=== PATIENT | male | born 1955 | race Two or more races ===

== ENCOUNTER 2017-04-20 12:09 | Day surgery (SDC) | payer OTHER ==
[2017-04-20 12:44] VITALS: BMI 25.7
[2017-04-20 12:51] LABS: PH,URINE 5.5 (4.5-8); URINE APPEARANCE Clear; URINE BILIRUBIN Negative (NEGATIVE); URINE BLOOD Trace-intact (NEGATIVE); URINE COLOR AMBER; URINE GLUCOSE (UA) Negative (NEGATIVE); URINE KETONE Negative (NEGATIVE); URINE LEUK ESTERASE 1+ (NEGATIVE); URINE NITRITE Negative (NEGATIVE); URINE PROTEIN Negative (NEGATIVE); URINE UROBILINOGEN 0.2 (0.2-1.0)
[2017-04-20] MEDS ORDERED: ACETAMINOPHEN 325 MG TABLET (FP) PO ONE (13:13)
[2017-04-20] MEDS ORDERED: SODIUM CHLORIDE 1,000 ML IV SCH ×2 (13:15→16:45)
[2017-04-20 13:27] LABS: WHITE BLOOD COUNT 5.4 K/mm3 (4.0-10.8)
[2017-04-20] MEDS ORDERED: ACETAMINOPHEN 325 MG TABLET (FP) ONE (13:27)
[2017-04-20 13:32] LABS: MCH 30.7 pg (25.7-33.7); MCHC 34.3 g/dl (32.0-35.9); MEAN CELL VOLUME 89.5 fl (80-96); MEAN PLT VOLUME 9.8 fl (7.5-11.1); PLATELET COUNT 196 K/MM3 (134-434); RDW 12.8 % (11.9-15.9)
[2017-04-20 13:42] LABS: ALBUMIN 4.2 g/dl (3.5-5.0); ALK PHOS 81 U/L (32-92); ANION GAP 3 (8-16); BILIRUBIN,TOTAL 0.9 mg/dl (0.2-1.0); CALCIUM 9.2 mg/dl (8.4-10.2); CO2 27 mmol/L (22-28); CREATININE 0.9 mg/dl (0.6-1.3); GLUCOSE,RANDOM 95 mg/dl (74-106); SGOT/AST 23 U/L (10-42); SGPT/ALT 24 U/L (10-40); TOT PROT 6.9 g/dl (6.4-8.3)
[2017-04-20 13:49] LABS: PLATELET ESTIMATE NORMAL (NORMAL)
--- NOTE | 2017-04-20 15:11 | PDOC ---
History of Present Illness - General Chief Complaint: Pain Stated Complaint: RIGHT ABDOMINAL PAIN X 3 DAYS Time Seen by Provider: 04/20/17 12:20 History Source: Patient, Family, Spouse Exam Limitations: No Limitations - History of Present Illness Initial Comments: 04/20/17 15:07 CHIEF COMPLAINT: Abdominal pain in the right lower abdomen HISTORY OF PRESENT ILLNESS: Patient is a 61-year-old man with a history of hypertension and smoking who presents complaining of right lower abdominal pain for 3 days. The pain has been steady. It does not radiate. There is no nausea or vomiting. He feels some mild constipation but has been having a bowel movement every 1-2 days which is his usual. There is no dysuria or frequency. 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 There is no change with movement. REVIEW OF SYSTEMS: GENERAL/CONSTITUTIONAL: No fever or chills. No weakness. No weight change. HEAD, EYES, EARS, NOSE AND THROAT: No change in vision. No ear pain or discharge. No sore throat. CARDIOVASCULAR: No chest pain or shortness of breath. RESPIRATORY: No cough, wheezing, or hemoptysis. GASTROINTESTINAL: No nausea, vomiting, diarrhea or constipation. No rectal bleeding. Positive abdominal pain. GENITOURINARY: No dysuria, frequency, or change in urination. MUSCULOSKELETAL: No joint or muscle swelling or pain. No neck or back pain. SKIN AND BREASTS: No rash or easy bruising. NEUROLOGIC: No headache, vertigo, loss of consciousness, or loss of sensation. PSYCHIATRIC: No depression or anxiety. ENDOCRINE: No increased thirst. No abnormal weight change. HEMATOLOGIC/LYMPHATIC: No anemia, easy bleeding, or history of blood clots. ALLERGIC/IMMUNOLOGIC: No hives or skin allergy. No latex allergy. Past History - Past Medical History Allergies/Adverse Reactions: Allergies Allergy/AdvReac Type Severity Reaction Status Date / Time No Known Allergies Allergy Verified 04/20/17 12:30 Home Medications: Ambulatory Orders Cholecalciferol (Vitamin D3) [Vitamin D3] 5,000 unit PO DAILY 04/20/17 Cyanocobalamin (Vitamin B-12) [B-12] 500 mcg PO DAILY 04/20/17 Gabapentin [Neurontin] 600 mg PO BID 04/20/17 Hydrochlorothiazide 25 mg PO DAILY 04/20/17 Naproxen [Naprosyn -] 500 mg PO BID PRN 04/20/17 Turmeric/Turmeric Ext/Pepr Ext [Turmeric Complex 500 mg Cap] 1 each PO DAILY HTN: Yes Hypercholesterolemia: Yes Other medical history: SPINAL STENOSIS WITH HERNIATED DISC - Psycho/Social/Smoking Cessation Hx Anxiety: No Suicidal Ideation: No Smoking History: Current every day smoker Number of Cigarettes Smoked Daily: 7 Information on smoking cessation initiated: Yes 'Breaking Loose' booklet given: 04/20/17 Hx Alcohol Use: Yes (1-2 BEER PER MONTH) Drug/Substance Use Hx: No Substance Use Type: None *Physical Exam - Vital Signs Last Vital Signs Temp Pulse Resp BP Pulse Ox 98.2 F 85 15 138/84 96 04/20/17 12:10 04/20/17 12:10 04/20/17 12:10 04/20/17 12:10 04/20/17 12:10 - Physical Exam Comments: 04/20/17 15:10 GENERAL: The patient is awake, alert, and fully oriented, in no acute distress. HEAD: Normal with no signs of trauma. EYES: Pupils equal, round and reactive to light, extraocular movements intact, sclera anicteric, conjunctiva clear. ENT: Ears normal, nares patent, oropharynx clear without exudates. Moist mucous membranes. NECK: Normal range of motion, supple without lymphadenopathy, JVD, or masses. LUNGS: Breath sounds equal, clear to auscultation bilaterally. No wheezes, and no crackles. HEART: Regular rate and rhythm, normal S1 and S2 without murmur, rub or gallop. ABDOMEN: Soft, normoactive bowel sounds. Positive focal tenderness in the right lower quadrant. No guarding, no rebound. No masses. EXTREMITIES: Normal range of motion, no edema. No clubbing or cyanosis. No cords, erythema, or tenderness. NEUROLOGICAL: Cranial nerves II through XII grossly intact. Normal speech, normal gait. PSYCH: Normal mood, normal affect. SKIN: Warm, Dry, normal turgor, no rashes or lesions noted. ED Treatment Course - LABORATORY CBC & Chemistry Diagram: 04/20/17 13:20 04/20/17 13:20 - ADDITIONAL ORDERS Additional order review: Laboratory Results 04/20/17 04/20/17 13:20 12:44 Sodium 137 Potassium 3.8 Chloride 107 Carbon Dioxide 27 Anion Gap 3 L BUN 10 Creatinine 0.9 Creat Clearance w eGFR > 60 Random Glucose 95 Calcium 9.2 Total Bilirubin 0.9 AST 23 ALT 24 Alkaline Phosphatase 81 Total Protein 6.9 Albumin 4.2 Lipase 39 Urine Color Angie Urine Appearance Clear Urine pH 5.5 Ur Specific [place] 1.010 Urine Protein Negative Urine Glucose (UA) Negative Urine Ketones Negative Urine Blood Trace-intact Urine Nitrite Negative Urine Bilirubin Negative Urine Urobilinogen 0.2 Ur Leukocyte Esterase 1+ H Urine WBC 5-10 Ur Epithelial Cells Rare 04/20/17 13:20 RBC 5.38 MCV 89.5 MCHC 34.3 RDW 12.8 MPV 9.8 Neutrophils % 66.0 Lymphocytes % 29.0 Monocytes % 3.0 L Eosinophils % 2.0 - RADIOLOGY Radiology Studies Ordered: Category Date Time Status ABDOMEN & PELVIS CT WITH CONTR [CT] Stat CT Scan 04/20/17 13:13 Taken - Medications Given in the ED: ED Medications Discontinued Medications Generic Name Dose Route Start Last Admin Trade Name Freq PRN Reason Stop Dose Admin Acetaminophen 650 mg 04/20/17 13:13 04/20/17 13:29 Tylenol - PO 04/20/17 13:14 650 mg ONCE ONE Administration Medical Decision Making - Medical Decision Making 04/20/17 16:37 White blood cell count is unimpressive. Patient with persistent focal right lower quadrant pain and persistent focal tenderness at McBurney's point on serial examinations. CT scan of the abdomen and pelvis shows an inflamed appendix with periappendiceal stranding. Case discussed with the surgeon Dr. Lyons, she will come to the hospital to perform an appendectomy. Patient received Zosyn 4.5 g IV. He received 1 L of fluid and is currently on his second liter at 125 mL per hour. *DC/Admit/Observation/Transfer Diagnosis at time of Disposition: Acute appendicitis Qualifiers: Acute appendicitis type: with localized peritonitis Qualified Code(s): K35.3 - Acute appendicitis with localized peritonitis - Discharge Dispostion Condition at time of disposition: Good Admit: Yes Decision to Admit order Date/Time: 04/20/17 16:[address] Lyons, spoke to her now
[2017-04-20] MEDS ORDERED: PIPERACILLIN/TAZOB 4.5 GM 4.5 GM in DEXTROSE 5%-WATER 100 ML IVPB ONE (15:47)
[2017-04-20] MEDS ORDERED: PIPERACILLIN/TAZOBACTAM 4.5 GM VIAL IVPB ONE (16:23)
--- NOTE | 2017-04-20 17:58 | HP ---
Admitting History and Physical - Primary Care Physician PCP: Carolyn Duval - Admission Chief Complaint: RLQ pain History of Present Illness: 61yo M with HTN, HLD, lumbar stenosis/disc disease, smoker, presents with 3 days of RLQ pain not associated with F/C, N/V, D/C, anorexia. It started few hours after lifting heavy paint can, but persisted, so son advised him to come to ER today. Last BM yesterday, normal for him. Last po 10am this morning, bread. In ER, wbc 5, CT shows dilated appendix with inflammatory changes consistent with appendicitis. ER started fluids and antibiotics and called surgery. He currently states no pain without palpation. History Source: Patient Limitations to Obtaining History: Language Barrier (acoustics teacher by phone #[phone] used for H&P and surgical consent) - Past Medical History Cardiovascular: Yes: HTN, Hyperlipdemia (meds were stopped) Musculoskeletal: Yes: Chronic low back pain - Smoking History Smoking history: Current every day smoker Have you smoked in the past 12 months: Yes Aproximately how many cigarettes per day: 7 (for ~50 years) - Alcohol/Substance Use Hx Alcohol Use: Yes (1-2 BEER PER MONTH) History of Substance Use: reports: None - Social History Usual Living Arrangement: Yes: With Spouse Home Medications - Allergies Allergies/Adverse Reactions: Allergies Allergy/AdvReac Type Severity Reaction Status Date / Time No Known Allergies Allergy Verified 04/20/17 12:30 - Home Medications Home Medications: Ambulatory Orders Cholecalciferol (Vitamin D3) [Vitamin D3] 5,000 unit PO DAILY 04/20/17 Cyanocobalamin (Vitamin B-12) [B-12] 500 mcg PO DAILY 04/20/17 Gabapentin [Neurontin] 600 mg PO BID 04/20/17 Hydrochlorothiazide 25 mg PO DAILY 04/20/17 Naproxen [Naprosyn -] 500 mg PO BID PRN 04/20/17 Turmeric/Turmeric Ext/Pepr Ext [Turmeric Complex 500 mg Cap] 1 each PO DAILY Family Disease History - Family Disease History Family Disease History: Heart Disease: Brother Review of Systems - Review of Systems Constitutional: denies: Chills, Fever Eyes: denies: Blurred Vision, Double Vision HENT: denies: Difficult Swallowing, Nasal Congestion, Throat Pain Neck: denies: Swollen Glands, Tenderness Cardiovascular: denies: Chest Pain, Palpitations Respiratory: denies: Cough, SOB Gastrointestinal: reports: Abdominal Pain (with hpi). denies: Constipation, Diarrhea, Nausea, Vomiting Genitourinary: denies: Burning, Dysuria Musculoskeletal: reports: Back Pain. denies: Joint Pain Integumentary: denies: Change in Color, Rash Neurological: denies: Dizziness, Headache Endocrine: denies: Unexplained Weight Gain, Unexplained Weight Loss Physical Examination Vital Signs: Vital Signs Temperature 98.2 F 04/20/17 12:10 Pulse Rate 85 04/20/17 12:10 Respiratory Rate 15 04/20/17 12:10 Blood Pressure 138/84 04/20/17 12:10 O2 Sat by Pulse Oximetry (%) 96 04/20/17 12:10 Constitutional: Yes: Well Nourished, No Distress, Calm Eyes: Yes: Conjunctiva Clear, EOM Intact HENT: Yes: Atraumatic, Normocephalic Cardiovascular: Yes: Regular Rate and Rhythm. No: Murmur Respiratory: Yes: Regular, CTA Bilaterally Gastrointestinal: Yes: Normal Bowel Sounds, Soft, Tenderness (RLQ focal at McBurney's without rebound or guarding). No: Distention ...Rectal Exam: Yes: Deferred Renal/: No: CVA Tenderness - Left, CVA Tenderness - Right Musculoskeletal: No: Joint Swelling, Muscle Weakness Extremities: No: Cool, Cyanosis Edema: No Peripheral Pulses WNL: Yes Integumentary: No: Jaundice, Rash Neurological: Yes: Alert, Oriented Psychiatric: Yes: Alert, Oriented Labs: CBC, BMP 04/20/17 13:20 04/20/17 13:20 CMP Sodium 137 mmol/L (136-145) 04/20/17 13:20 Potassium 3.8 mmol/L (3.5-5.1) 04/20/17 13:20 Chloride 107 mmol/L (98-107) 04/20/17 13:20 Carbon Dioxide 27 mmol/L (22-28) 04/20/17 13:20 Anion Gap 3 (8-16) L 04/20/17 13:20 BUN 10 mg/dl (7-18) 04/20/17 13:20 Creatinine 0.9 mg/dl (0.6-1.3) 04/20/17 13:20 Creat Clearance w eGFR > 60 (>60) 04/20/17 13:20 Random Glucose 95 mg/dl (74-106) 04/20/17 13:20 Calcium 9.2 mg/dl (8.4-10.2) 04/20/17 13:20 Total Bilirubin 0.9 mg/dl (0.2-1.0) 04/20/17 13:20 AST 23 U/L (10-42) 04/20/17 13:20 ALT 24 U/L (10-40) 04/20/17 13:20 Alkaline Phosphatase 81 U/L (32-92) 04/20/17 13:20 Total Protein 6.9 g/dl (6.4-8.3) 04/20/17 13:20 Albumin 4.2 g/dl (3.5-5.0) 04/20/17 13:20 Lipase 39 U/L (22-51) 04/20/17 13:20 Imaging - Results Cat Scan: Report Reviewed (acute appendicitis, incidental 1.1cm left adrenal nodule), Image Reviewed Problem List - Problems (1) Acute appendicitis Assessment/Plan: NPO/IVF Zosyn given in ER Discussed with patient R/B/A of laparoscopic possible open appendectomy including but not limited to bleeding, infection, injury to bladder/intestines/ nearby structures, intestinal leak, intraabdominal abscess, need for further procedures. Patient is agreeable to operation and signed informed consent. Will take to OR for same and anticipate 23H/OBS bed afterward with resumption of PO Pain meds prn DVT prophylaxis - early ambulation, SCDs Likely d/c home tomorrow when ambulating, voiding, tolerating po and pain controlled on oral meds Code(s): K35.80 - UNSPECIFIED ACUTE APPENDICITIS Qualifiers: Acute appendicitis type: other Qualified Code(s): K35.89 - Other acute appendicitis (2) HTN (hypertension) Assessment/Plan: hold HCTZ for 24H Code(s): I10 - ESSENTIAL (PRIMARY) HYPERTENSION Qualifiers: Hypertension type: essential hypertension Qualified Code(s): I10 - Essential (primary) hypertension (3) Spinal stenosis of lumbar region Code(s): M48.06 - SPINAL STENOSIS, LUMBAR REGION (4) Tobacco smoker, less than 10 cigarettes per day Code(s): F17.210 - NICOTINE DEPENDENCE, CIGARETTES, UNCOMPLICATED
[2017-04-20] MEDS ORDERED: PROPOFOL 20 ML ONE (18:13)
[2017-04-20] MEDS ORDERED: MIDAZOLAM HCL 2 MG/2 ML SINGLE DOSE VIAL ONE (18:13)
[2017-04-20] MEDS ORDERED: ROCURONIUM BROMIDE 50 MG/5 ML VIAL ONE (18:16)
[2017-04-20] MEDS ORDERED: SUCCINYLCHOLINE CHLORIDE 200 MG/10 ML VIAL ONE (18:18)
[2017-04-20] MEDS ORDERED: PROMETHAZINE HCL 25 MG/1 ML VIAL IVPUSH PRN (18:25)
[2017-04-20] MEDS ORDERED: ONDANSETRON 4 MG/2 ML VIAL IVPUSH PRN (18:25)
--- NOTE | 2017-04-20 18:26 | PDOC ---
*Physical Exam - Vital Signs Last Vital Signs Temp Pulse Resp BP Pulse Ox 98.2 F 85 15 138/84 96 04/20/17 12:10 04/20/17 12:10 04/20/17 12:10 04/20/17 12:10 04/20/17 12:10 ED Treatment Course - LABORATORY CBC & Chemistry Diagram: 04/20/17 13:20 04/20/17 13:20 - ADDITIONAL ORDERS Additional order review: Laboratory Results 04/20/17 04/20/17 13:20 12:44 Sodium 137 Potassium 3.8 Chloride 107 Carbon Dioxide 27 Anion Gap 3 L BUN 10 Creatinine 0.9 Creat Clearance w eGFR > 60 Random Glucose 95 Calcium 9.2 Total Bilirubin 0.9 AST 23 ALT 24 Alkaline Phosphatase 81 Total Protein 6.9 Albumin 4.2 Lipase 39 Urine Color Angie Urine Appearance Clear Urine pH 5.5 Ur Specific [place] 1.010 Urine Protein Negative Urine Glucose (UA) Negative Urine Ketones Negative Urine Blood Trace-intact Urine Nitrite Negative Urine Bilirubin Negative Urine Urobilinogen 0.2 Ur Leukocyte Esterase 1+ H Urine WBC 5-10 Ur Epithelial Cells Rare 04/20/17 13:20 RBC 5.38 MCV 89.5 MCHC 34.3 RDW 12.8 MPV 9.8 Neutrophils % 66.0 Lymphocytes % 29.0 Monocytes % 3.0 L Eosinophils % 2.0 - RADIOLOGY Radiology Studies Ordered: Category Date Time Status ABDOMEN & PELVIS CT WITH CONTR [CT] Stat CT Scan 04/20/17 13:13 Completed - Medications Given in the ED: ED Medications Discontinued Medications Generic Name Dose Route Start Last Admin Trade Name Freq PRN Reason Stop Dose Admin Acetaminophen 650 mg 04/20/17 13:13 04/20/17 13:29 Tylenol - PO 04/20/17 13:14 650 mg ONCE ONE Administration Piperacillin Sod/Tazobactam 100 mls @ 200 mls/hr 04/20/17 15:47 04/20/17 16:47 Sod 4.5 gm/ Dextrose IVPB 04/20/17 16:16 200 mls/hr ONCE ONE Administration Medical Decision Making - Medical Decision Making 04/20/17 18:25 Twelve-lead EKG shows normal sinus rhythm at a rate of 63 bpm. The axis is normal. The intervals are normal. There is no acute ST elevation or depression. Impression: Normal 12-lead EKG. The surgeon is here at the bedside evaluating the patient. He is pending OR transfer. *DC/Admit/Observation/Transfer Diagnosis at time of Disposition: Acute appendicitis Qualifiers: Acute appendicitis type: other Qualified Code(s): K35.89 - Other acute appendicitis - Discharge Dispostion Condition at time of disposition: Good Decision to Admit order Date/Time: Decision to Admit Order Category Date Time Status Decision to Admit to Hospital Routine Admission 04/20/17 16:39 Active - Referrals Referrals: Kit Rahman MD [Primary Care Provider] - - Patient Instructions - Post Discharge Activity
[2017-04-20] MEDS ORDERED: LACTATED RINGERS SOLUTION 1,000 ML IV SCH (18:30)
[2017-04-20] MEDS ORDERED: NEOSTIGMINE METHYLSULFATE 0.5 MG/ML - 10 ML MDV ONE (19:52)
[2017-04-20] MEDS ORDERED: LIDOCAINE HCL 1%, 10 MG/ML (20ML VIAL) INF ONE (19:58)
[2017-04-20] MEDS ORDERED: BUPIVACAINE HCL/PF 0.5% (5MG/ML) 10 ML VIAL IJ ONE (20:00)
[2017-04-20] MEDS ORDERED: ACETAMINOPHEN 325 MG TABLET (FP) PO PRN (20:26)
[2017-04-20] MEDS ORDERED: morphine CARPU-JECT 2 MG/1 ML DISP.SYRIN IVPUSH PRN (20:26)
[2017-04-20] MEDS ORDERED: IBUPROFEN 800 MG/8 ML IJ IVPB ONE (20:35)
--- NOTE | 2017-04-20 20:47 | OP ---
Operative Note - Note: Operative Date: 04/20/17 Pre-Operative Diagnosis: acute appendicitis Operation: laparoscopic appendectomy Findings: enlarged inflamed appendix, normal base Post-Operative Diagnosis: Same as Pre-op Surgeon: Abiel Licona Anesthesiologist/MONITOR CAR OPERATOR: Donnie Mathews Anesthesia: General, Local (10ml 1% lidocaine + 0.5% marcaine) Specimens Removed: appendix to pathology Estimated Blood Loss (mls): 5 Drains & Tubes with Location: Khanna removed at end of case Drains, Volume Out (mls): 250 (UOP) Fluid Volume Replaced (mls): 900 (crystalloid) Operative Report Dictated: Yes
[2017-04-20] MEDS: GABAPENTIN 300 MG CAPSULE (FP) PO SCH (22:22)
[2017-04-21] MEDS ORDERED: PIPERACILLIN/TAZOB 4.5 GM 100 ML IVPB ONE (02:00)
[2017-04-21] MEDS ORDERED: NAPROXEN 500 MG TABLET (FP) PO SCH (07:00)
[2017-04-21] MEDS: GABAPENTIN 300 MG CAPSULE (FP) PO SCH (09:26)
[2017-04-21 14:21] VITALS: BP 131/57; PULSE 84; TEMP 98.4
--- NOTE | 2017-04-21 16:06 | DS ---
Physical Examination Vital Signs: Vital Signs Temperature 98.4 F 04/21/17 14:20 Pulse Rate 84 04/21/17 14:20 Respiratory Rate 18 04/21/17 14:20 Blood Pressure 131/57 04/21/17 14:20 O2 Sat by Pulse Oximetry (%) 96 04/21/17 14:20 Findings/Remarks: Pt seen and examined in room, sitting up and lying down. Tolerating diet, feeling well. Pain minimal, has not needed pain meds since am. Voided, ambulated. Constitutional: Yes: Well Nourished, No Distress, Calm Cardiovascular: Yes: Regular Rate and Rhythm. No: Murmur Respiratory: Yes: Regular, CTA Bilaterally Gastrointestinal: Yes: Normal Bowel Sounds, Soft, Distention (mild), Tenderness (mild at RLQ and umbilical incision) Wound/Incision: Yes: Steri Strips (bloodstained at umbilicus but dry), Dressing Dry and Intact (LLQ and suprapubic sites ok, small pink spot at inferior of lower port dressing, dried), Dressing Removed (at umbilicus and changed for clean gauze and tegaderm), Other (umbilical site dressing saturated with serosang from last night - dressing changed, steri's intact) Neurological: Yes: Alert, Oriented Labs: CBC, BMP no new Discharge Summary Reason For Visit: acute appendicitis Current Active Problems Acute appendicitis (Acute) HTN (hypertension) (Acute) Spinal stenosis of lumbar region (Acute) Tobacco smoker, less than 10 cigarettes per day (Acute) Procedures: Principal: laparoscopic appendectomy Hospital Course: 61yoM with 3 days of RLQ pain and no significant associated symptoms was found in ER to have acute appendicitis by CT. He was taken for uneventful laparoscopic appendectomy. Postop course has been unremarkable. He has ambulated , voided, tolerated diet, and has minimal pain controlled with oral meds. He is discharged home with lifting restrictions to follow up with me in 2 weeks. He is also advised to see his PMD soon. Condition: Good - Instructions Diet, Activity, Other Instructions: You CANNOT sit in water meaning : NO POOL OR HOT TUB. This will be UNTIL your incisions are COMPLETELY healed. NO working out or going to the gym for 1 month. Postoperative instructions: You had a laparoscopic appendectomy on 04/20/[address] Abiel Licona of [facility]. Resume your usual activities gradually, but no heavy exertion or lifting more than 10-15 pounds for 1 month. Remove dressings tomorrow evening or Saturday morning; sticky tapes underneath will fall off by themselves. You may shower daily starting then, just pat the incision areas dry. Eat lightly at first, but advance to your usual diet as tolerated. For pain, use Tylenol (acetaminophen) or ibuprofen every 6 hours as needed. Do not take more than 3000mg of acetaminophen in a day. Take medications as prescribed or indicated on the labeling. Call Dr. Licona's office later in the week at [phone] for your postop appointment (Saturday ~2 weeks after surgery). Call Dr. Licona if you have: - increasing pain not responsive to pain medication - fever of 101F or higher - vomiting - unusual or increasing bleeding or drainage from wounds - increasing redness or swelling at wound sites - inability to urinate Referrals: Abiel Licona MD [Staff Physician] - 2 Weeks (Call the office and make a appointment to see Dr. Licona in 2 weeks. ) Kit Rahman MD [Primary Care Provider] - Disposition: HOME - Home Medications Comprehensive Discharge Medication List: Ambulatory Orders Cholecalciferol (Vitamin D3) [Vitamin D3] 5,000 unit PO DAILY 04/20/17 Cyanocobalamin (Vitamin B-12) [B-12] 500 mcg PO DAILY 04/20/17 Gabapentin [Neurontin] 600 mg PO BID 04/20/17 Hydrochlorothiazide 25 mg PO DAILY 04/20/17 Naproxen [Naprosyn -] 500 mg PO BID PRN 04/20/17 Turmeric/Turmeric Ext/Pepr Ext [Turmeric Complex 500 mg Cap] 1 each PO DAILY
--- NOTE | 2017-04-23 09:27 | OP ---
DATE OF OPERATION: 04/20/2017 PREOPERATIVE DIAGNOSIS: Acute appendicitis. POSTOPERATIVE DIAGNOSIS: Acute appendicitis. PROCEDURE PERFORMED: Laparoscopic appendectomy. SURGEON: Abiel Licona MD ANESTHESIA: General endotracheal and local 10 mL of 1% lidocaine plus 0.5% Marcaine. ESTIMATED BLOOD LOSS: 5 mL FLUIDS: 900 mL of crystalloid. URINE OUTPUT: 250 mL (Khanna removed at end of case). SPECIMEN: Appendix to Pathology. FINDINGS: An enlarged, inflamed appendix with a normal base. DISPOSITION: Stable and extubated to PACU. INDICATIONS FOR PROCEDURE: The patient is a 61-year-old [place] male with hypertension, hyperlipidemia, lumbar spinal stenosis, who is a light smoker, presented to the ER with 3 days of right lower quadrant pain, not associated with fever or chills, nausea, vomiting, anorexia, diarrhea, or constipation. In the emergency room, his white count was only 5, but a CT scan did show a dilated appendix with inflammatory changes consistent with appendicitis. The ER started fluids and antibiotics, and Surgery was called. Risks, benefits, and alternatives of laparoscopic, possible open appendectomy were discussed with the patient via director television by phone, including, but not limited to, bleeding, infection, injury to bladder, intestines or nearby structures, intestinal leakage, or abdominal abscess or need for further procedures. The patient agrees to operation, and informed consent for laparoscopic, possible open appendectomy was signed. He is now brought to the operating room for the same. OPERATIVE TECHNIQUE: The patient is brought to the operating room and laid supine on the operating table. Sequential compression devices are applied to bilateral lower extremities, and antibiotics had just recently finished in the emergency room. He was given Zosyn just prior to being transferred to the operating room; so, no additional antibiotics were given. After induction and intubation by Anesthesia , a Khanna catheter was placed into the bladder, which was removed at the end of the case. His abdomen was clipped of hair, prepped with ChloraPrep, and draped in sterile fashion. A small infraumbilical midline incision was made with a scalpel and carried into subcutaneous tissues with electrocautery until the abdominal wall fascia was identified, scored, and elevated with Dora clamps. The peritoneal cavity was entered bluntly with the tip of a clamp and then a fingertip to ensure entry and no underlying adhesions. A stay stitch of 0 Vicryl was then placed in figure-of-8 fashion in the fascia for later closure, and the 12-mm Sapna port was introduced directly into the abdominal cavity. The abdomen was insufflated with carbon dioxide. The patient was placed in Trendelenburg position, and the 5-mm laparoscope inserted to inspect the abdominal cavity. The tip of the appendix was visible in the right lower quadrant and noted to be inflamed and enlarged with injected vessels. Two additional 5-mm ports were then placed in the left lower quadrant and suprapubic areas under direct vision. The patient was turned with the right side upward, and the camera was moved to the left lower quadrant port. Two graspers were introduced through the subxiphoid and umbilical port sites and used to gently manipulate the small bowel medially. The appendix was grasped with a grasper, and a few small adhesions to the adjacent fat, veil of Treves and the sidewall were gently and bluntly . The edge of the cecum itself was noted to be somewhat mushroomed over the base of the appendix, but the appendix was gently grasped and withdrawn until a normal base was visible where it joined the cecum, just a little bit under the edge of the veil of Treves. A window was created with a [place] dissector just at the base of the appendix, through which an Endo NADJA stapler was then introduced with a purple load and used to transect the base of the appendix just where it joined the cecum. There was no bleeding from the staple line, and the appendix was re- grasped and elevated. A brower load of the Endo NADJA stapler 60 in length was introduced, and a vascular load used to transect the mesoappendix completely. There was no bleeding noted from the staple line. There was a small bit of blood clot noted from some of the adhesions that had been bluntly , and this was irrigated and suctioned clear of fluid in the right lower quadrant. There was no additional bleeding noted. The appendix was placed in an Endo Catch bag through the umbilical port site and left for retrieval at the end of the case. The pelvis was also inspected and noted not to have any significant fluid accumulation. Once the operative field was again inspected and noted to be hemostatic, the patient was placed back in neutral position, and the small bowel and omentum drawn back down toward the right lower quadrant to cover the operative area. The two 5-mm ports were removed under direct vision. The Sapna trocar and the appendix and the bag were also removed out of the umbilical port site and the abdomen exsufflated of carbon dioxide. The stay stitch at the umbilical site was tied to close the fascia there. Hemostasis was achieved in the port sites with electrocautery where needed. Local anesthetic was injected into each of the 3 port sites, and the skin was closed with 4-0 Vicryl subcuticular sutures including a running at the umbilical location. Mastisol and Steri-Strips were applied to the incisions which were then covered with gauze and Tegaderm. The Khanna catheter was removed from the patient's bladder at the end of the case. Counts were correct at the end of the case. Patient was then awakened and extubated by Anesthesia, was moved back to a stretcher, and taken to recovery in stable condition, having tolerated the procedure well. Myra [id number] MTDD
--- NOTE | 2017-04-24 10:32 | PATH ---
Surgical Pathology Report Patient Name: PRERNA ARIZMENDI [facility]. Rec. #: [id number] /Age/Gender: 1955 (Age: 61) / M Account: [id number] [facility] Taken: 04/20/2017 Received: 04/20/2017 Reported: 04/24/2017 Physicians: Abiel Licona M.D. Specimen(s) Received APPENDIX Clinical History Right lower quadrant pain x3 days, appendicitis Final Diagnosis APPENDIX, APPENDECTOMY: ACUTE APPENDICITIS. FIBROUS OBLITERATION OF LUMEN. Electronically Signed Angie Goel M.D. Gross Description Received in formalin, labeled "appendix," is a 7.5 cm. in length vermiform appendix with a stapled margin of resection and moderate attached fat. The serosa is brower-pink and smooth. Sectioning reveals a pinpoint lumen. The wall of the appendix averages 0.3 cm. in thickness. Bicycle Mechanic sections are submitted in one cassette. 04/22/2017 [facility]04/22/2017
== END 2017-04-21 16:38 | disposition home or self-care (01) ==
LOC: FER 12:09 → FM/S 19:02 → FER 21:15 → FASUSAT 21:15 → FM/S 21:15 → FASU 21:15 → UNDOADMOB 21:16 → FM/S 21:16 → FASUSAT 04-21 10:07 → FASU 04-21 16:38
PROVIDERS: ATTEND Surgery
PROC: 0DTJ4ZZ Resection of Appendix, Percutaneous Endoscopic Approach (ICD-10-PCS; principal; 2017-04-20 18:36)
DX: K35.80 Unspecified acute appendicitis (principal); I10 Essential (primary) hypertension; E78.5 Hyperlipidemia, unspecified; F17.210 Nicotine dependence, cigarettes, uncomplicated; M48.06 Spinal stenosis, lumbar region
CPT/HCPCS: 36415; 74177-TC; 80053; 81003; 81015; 83690; 85025; 88304-TC; 94760; 99283-25

== ENCOUNTER 2018-10-21 17:06 | Emergency (ER) | payer OTHER ==
[2018-10-21 17:23] VITALS: BP 147/89; PULSE 86; TEMP 98; BMI 22.1
--- NOTE | 2018-10-21 18:13 | PDOC ---
History of Present Illness - History of Present Illness Initial Comments: 10/21/18 18:14 63yo cape verdean speaking M ([employer] # [id number]) hx HTN, HL, chronic low back pain, appendectomy presents to the ED with 4 weeks of R groin pain. He relates the pain to walking into a table 4 weeks ago. Pain is sharp, non radiating and intermittent. At times, he feels a "bubble" in his groin. He states the bubble comes out with coughing and walking. Has been taking tylenol with good relief of symptoms. Pt presents to the ED today as he has been unable to make an appointment with his primary doctor. Pain has actually improved over the last week. Last BM today was normal. Denies any current pain. Denies recent fevers, chills, N/V, urinary sxs, CP, SOB, focal weakness/numbness. REports pain is 3/10 when the bubble is out. Pt is an active smoker. <Eugene Chambers - Last Filed: 10/21/18 18:54> <Patti Reed I - Last Filed: 10/21/18 21:20> - General Chief Complaint: Pain Stated Complaint: RIGHT GROIN PAIN Time Seen by Provider: 10/21/18 17:10 Past History - Past Medical History COPD: No HTN: Yes Hypercholesterolemia: Yes Other medical history: BACK PROBLEMS - Surgical History Appendectomy: Yes - Suicide/Smoking/Psychosocial Hx Smoking History: Never smoked Have you smoked in the past 12 months: Yes Number of Cigarettes Smoked Daily: 7 Information on smoking cessation initiated: No 'Breaking Loose' booklet given: 04/20/17 Hx Alcohol Use: No Drug/Substance Use Hx: No Substance Use Type: None <Eugene Chambers - Last Filed: 10/21/18 18:54> <Patti Reed I - Last Filed: 10/21/18 21:20> - Past Medical History Allergies/Adverse Reactions: Allergies Allergy/AdvReac Type Severity Reaction Status Date / Time No Known Allergies Allergy Verified 10/21/18 17:10 Home Medications: Ambulatory Orders Cyanocobalamin (Vitamin B-12) [B-12] 2,500 mcg PO DAILY 04/20/17 Hydrochlorothiazide 25 mg PO DAILY 04/20/17 Turmeric/Turmeric Ext/Pepr Ext [Turmeric Complex 500 mg Cap] 1 each PO DAILY Acetaminophen [Tylenol -] 1,000 mg PO PRN 10/21/18 Atorvastatin Ca [Lipitor] 20 mg PO HS 10/21/18 Gabapentin 800 mg PO BID 10/21/18 Review of Systems - Review of Systems Comments:: 10/21/18 18:16 GENERAL/CONSTITUTIONAL: No fever or chills. No weakness. HEAD, EYES, EARS, NOSE AND THROAT: No change in vision. No ear pain or discharge. No sore throat. GASTROINTESTINAL: No nausea, vomiting, diarrhea or constipation. GENITOURINARY: +R groin pain. No dysuria, frequency, or change in urination. CARDIOVASCULAR: No chest pain or shortness of breath. RESPIRATORY: No cough, wheezing, or hemoptysis. MUSCULOSKELETAL: No joint or muscle swelling or pain. No neck or back pain. SKIN: No rash NEUROLOGIC: No headache, vertigo, loss of consciousness, or change in strength/ sensation. ENDOCRINE: No increased thirst. No abnormal weight change. HEMATOLOGIC/LYMPHATIC: No anemia, easy bleeding, or history of blood clots. ALLERGIC/IMMUNOLOGIC: No hives or skin allergy. <Nassef,Yomna - Last Filed: 10/21/18 18:54> *Physical Exam - Vital Signs Last Vital Signs Temp Pulse Resp BP Pulse Ox 98 F 86 16 147/89 97 10/21/18 17:10 10/21/18 17:10 10/21/18 17:10 10/21/18 17:10 10/21/18 17:10 - Physical Exam Comments: 10/21/18 19:03 GENERAL: Awake, alert, and fully oriented, in no acute distress. Well appearing. EYES: PERRLA, EOMI, sclera anicteric, conjunctiva clear ENT: Nares patent, oropharynx clear without exudates. Moist mucosa NECK: Normal ROM, supple, no lymphadenopathy, JVD, or masses LUNGS: Breath sounds equal, clear to auscultation bilaterally. No wheezes, and no crackles HEART: Regular rate and rhythm, normal S1 and S2, no murmurs, rubs or gallops ABDOMEN: Soft, nontender, normoactive bowel sounds. No guarding, no rebound. No masses. No CVAT. :+mild R groin ttp right over inguinal canal, no large defects noted. No herniated bowel. When bearing down or coughing, no extrusion of bowel into defect. genitalia/scrotum wnl, no ttp or masses. EXTREMITIES: Normal range of motion, no edema. No cords, erythema, or tenderness. WWP. NEUROLOGICAL: Normal speech, cranial nerves intact, equal strength and sensation b/l SKIN: Warm, Dry, normal turgor, no rashes or lesions noted. <Eugene Chambers - Last Filed: 10/21/18 18:54> - Vital Signs Last Vital Signs Temp Pulse Resp BP Pulse Ox 98 F 86 16 147/89 97 10/21/18 17:10 10/21/18 17:10 10/21/18 17:10 10/21/18 17:10 10/21/18 17:10 <Patti Reed I - Last Filed: 10/21/18 21:20> Moderate Sedation - Procedure Monitoring Vital Signs: Procedure Monitoring Vital Signs Temperature 98 F 10/21/18 17:10 Pulse Rate 86 10/21/18 17:10 Respiratory Rate 16 10/21/18 17:10 Blood Pressure 147/89 10/21/18 17:10 O2 Sat by Pulse Oximetry (%) 97 10/21/18 17:10 <Eugene Chambers - Last Filed: 10/21/18 18:54> - Procedure Monitoring Vital Signs: Procedure Monitoring Vital Signs Temperature 98 F 10/21/18 17:10 Pulse Rate 86 10/21/18 17:10 Respiratory Rate 16 10/21/18 17:10 Blood Pressure 147/89 10/21/18 17:10 O2 Sat by Pulse Oximetry (%) 97 10/21/18 17:10 <Patti Reed I - Last Filed: 10/21/18 21:20> ED Treatment Course - LABORATORY CBC & Chemistry Diagram: 10/21/18 19:15 10/21/18 19:15 - ADDITIONAL ORDERS Additional order review: Laboratory Results 10/21/18 10/21/18 19:15 19:15 Sodium 135 L Potassium 4.1 Chloride 99 Carbon Dioxide 30 H Anion Gap 6 L BUN 16 Creatinine 0.9 Creat Clearance w eGFR > 60 Random Glucose 101 Calcium 9.3 Total Bilirubin 0.3 AST 25 ALT 21 Alkaline Phosphatase 103 H Total Protein 7.0 Albumin 4.0 Urine Color Yellow Urine Appearance Clear Urine pH 7.0 D Ur Specific [place] 1.015 Urine Protein Negative Urine Glucose (UA) Negative Urine Ketones Negative Urine Blood Negative Urine Nitrite Negative Urine Bilirubin Negative Urine Urobilinogen 1.0 Ur Leukocyte Esterase Negative 10/21/18 19:15 RBC 5.22 MCV 91.6 MCHC 32.5 RDW 12.8 MPV 9.6 Neutrophils % 64.1 Lymphocytes % 22.3 D Monocytes % 10.4 H D Eosinophils % 1.6 Basophils % 1.6 <Patti Reed I - Last Filed: 10/21/18 21:20> Medical Decision Making - Medical Decision Making 10/21/18 19:06 63yo M hx appy, HTN, HL presents to the ED with intermittent R groin pain, worse with activity and coughing consistent with a inguinal hernia. Exam wnl, no ttp, no incarcerated or strangulated hernia. Pt with no pain at this time and no masses on exam and thus will hold off on emergent imaging. Plan for labs , UA, reassess. Case signed out to overnight attending for further mgmt/dispo. <Eugene Chambers - Last Filed: 10/21/18 18:54> *DC/Admit/Observation/Transfer - Discharge Dispostion Decision to Admit order: No - Attestations Physician Attestion: 10/21/18 19:08 I, Dr. Eugene Chambers MD, attest that this document has been prepared under my direction and personally reviewed by me in its entirety. I further attest, that it accurately reflects all work, treatment, procedures and medical decision -making performed by me. <Eugene Chambers - Last Filed: 10/21/18 18:54> <Patti Reed I - Last Filed: 10/21/18 21:20> Diagnosis at time of Disposition: Groin pain Qualifiers: Laterality: unspecified laterality Qualified Code(s): R10.30 - Lower abdominal pain, unspecified - Discharge Dispostion Disposition: HOME Condition at time of disposition: Stable - Referrals Referrals: Carolyn Duval MD [Primary Care Provider] - - Patient Instructions Additional Instructions: Tylenol or motrin as needed for pain. Call your surgeon in the morning and make an appointment to follow up about your pain. Return to the emergency department immediately with ANY new, persistent or worsening symptoms. Continue any medications as previously prescribed by your physician. You should follow up with your primary doctor as soon as possible regarding today's emergency department visit. . Please make sure your doctor reviews the results of your emergency evaluation. Thank you for coming to the Emergency Department today for your care. It was a pleasure to see you today. Please note that your evaluation is INCOMPLETE until you follow-up with your doctor. Tylenol o motrin segn sea necesario para el dolor. Llame a blankenship cirujano por la maana y leana marium juan jose para darle seguimiento a blankenship dolor. Regrese al departamento de emergencias inmediatamente con CUALQUIER sntoma nuevo, persistente o que empeore. Contine con cualquier medicamento segn lo prescrito previamente por blankenship mdico. Debe hacer un seguimiento con blankenship mdico de cabecera lo antes posible con respecto a la visita al departamento de emergencias de robert. . Asegrese de que blankenship mdico revise los resultados de blankenship evaluacin de emergencia. Gina por venir robert al Departamento de Emergencias por blankenship atencin. Fue un placer formerly [facility], later [facility]. Tenga en cuenta que blankenship evaluacin es INCOMPLETA hasta que leana un seguimiento con blankenship mdico. - Post Discharge Activity
[2018-10-21 19:19] LABS: URINE APPEARANCE Clear; URINE BILIRUBIN Negative (NEGATIVE); URINE COLOR Yellow; URINE GLUCOSE (UA) Negative (NEGATIVE); URINE KETONE Negative (NEGATIVE); URINE LEUK ESTERASE Negative (NEGATIVE); URINE NITRITE Negative (NEGATIVE); URINE PROTEIN Negative (NEGATIVE)
[2018-10-21 19:27] LABS: BASO % 1.6 % (0-2.0); EOS % 1.6 % (0-4.5); HEMATOCRIT 47.8 % (35.4-49); HEMOGLOBIN 15.6 GM/dl (11.7-16.9); LYMPH % 22.3 % (8-40); MCH 29.8 pg (25.7-33.7); MCHC 32.5 g/dl (32.0-35.9); MEAN CELL VOLUME 91.6 fl (80-96); MEAN PLT VOLUME 9.6 fl (7.5-11.1); MONO % 10.4 % (3.8-10.2); NEUT % 64.1 % (42.8-82.8); PLATELET COUNT 300 K/MM3 (134-434); RBC 5.22 M/mm3 (4.00-5.60); RDW 12.8 % (11.9-15.9); WHITE BLOOD COUNT 7.4 K/mm3 (4.0-10.8)
[2018-10-21 19:35] LABS: ALK PHOS 103 U/L (32-92); ANION GAP 6 MMOL/L (8-16); BILIRUBIN,TOTAL 0.3 mg/dl (0.2-1.0); BLOOD UREA NITROGEN 16 mg/dl (7-18); CALCIUM 9.3 mg/dl (8.4-10.2); CHLORIDE 99 mmol/L (98-107); CO2 30 mmol/L (22-28); CREATININE 0.9 mg/dl (0.6-1.3); GLUCOSE,RANDOM 101 mg/dl (74-106); POTASSIUM 4.1 mmol/L (3.5-5.1); SGOT/AST 25 U/L (10-42); SGPT/ALT 21 U/L (10-40); SODIUM 135 mmol/L (136-145)
--- NOTE | 2018-10-21 19:53 | PDOC ---
*Physical Exam - Vital Signs Last Vital Signs Temp Pulse Resp BP Pulse Ox 98 F 86 16 147/89 97 10/21/18 17:10 10/21/18 17:10 10/21/18 17:10 10/21/18 17:10 10/21/18 17:10 ED Treatment Course - LABORATORY CBC & Chemistry Diagram: 10/21/18 19:15 10/21/18 19:15 - ADDITIONAL ORDERS Additional order review: Laboratory Results 10/21/18 10/21/18 19:15 19:15 Sodium 135 L Potassium 4.1 Chloride 99 Carbon Dioxide 30 H Anion Gap 6 L BUN 16 Creatinine 0.9 Creat Clearance w eGFR > 60 Random Glucose 101 Calcium 9.3 Total Bilirubin 0.3 AST 25 ALT 21 Alkaline Phosphatase 103 H Total Protein 7.0 Albumin 4.0 Urine Color Yellow Urine Appearance Clear Urine pH 7.0 D Ur Specific [place] 1.015 Urine Protein Negative Urine Glucose (UA) Negative Urine Ketones Negative Urine Blood Negative Urine Nitrite Negative Urine Bilirubin Negative Urine Urobilinogen 1.0 Ur Leukocyte Esterase Negative 10/21/18 19:15 RBC 5.22 MCV 91.6 MCHC 32.5 RDW 12.8 MPV 9.6 Neutrophils % 64.1 Lymphocytes % 22.3 D Monocytes % 10.4 H D Eosinophils % 1.6 Basophils % 1.6 Progress Note - Progress Note Progress Note: care of this patient was Transferred to mo from Dr. Medina at 1900 hrs. Patient is a 63-year-old male who comes in complaining of groin pain. There is a small defect in the inguinal area however no palpable hernia. Patient had basic workup ordered 20:00 Workup was negative for any acute pathology including normal white count and normal differential, normal chemistries and normal urinalysis Patient discharged home *DC/Admit/Observation/Transfer Diagnosis at time of Disposition: Groin pain Qualifiers: Laterality: unspecified laterality Qualified Code(s): R10.30 - Lower abdominal pain, unspecified - Discharge Dispostion Disposition: HOME Condition at time of disposition: Stable - Referrals Referrals: Carolyn Duval MD [Primary Care Provider] - - Patient Instructions Additional Instructions: Tylenol or motrin as needed for pain. Call your surgeon in the morning and make an appointment to follow up about your pain. Return to the emergency department immediately with ANY new, persistent or worsening symptoms. Continue any medications as previously prescribed by your physician. You should follow up with your primary doctor as soon as possible regarding today's emergency department visit. . Please make sure your doctor reviews the results of your emergency evaluation. Thank you for coming to the Emergency Department today for your care. It was a pleasure to see you today. Please note that your evaluation is INCOMPLETE until you follow-up with your doctor. Tylenol o motrin segn sea necesario para el dolor. Llame a blankenship cirujano por la maana y leana marium juan jose para darle seguimiento a blankenship dolor. Regrese al departamento de emergencias inmediatamente con CUALQUIER sntoma nuevo, persistente o que empeore. Contine con cualquier medicamento segn lo prescrito previamente por blankenship mdico. Debe hacer un seguimiento con blankenship mdico de cabecera lo antes posible con respecto a la visita al departamento de emergencias de robert. . Asegrese de que blankenship mdico revise los resultados de blankenship evaluacin de emergencia. Gina por venir robert al Departamento de Emergencias por blankenship atencin. Fue un placer verte robert. Tenga en cuenta que blankenship evaluacin es INCOMPLETA hasta que leana un seguimiento con blankenship mdico. - Post Discharge Activity
== END 2018-10-21 20:02 | disposition home or self-care (01) ==
LOC: FER 17:06
DX: R10.30 Lower abdominal pain, unspecified (principal); I10 Essential (primary) hypertension; E78.5 Hyperlipidemia, unspecified
CPT/HCPCS: 36415; 80053; 81003; 85025; 87086; 99283-25

== ENCOUNTER 2021-10-03 00:59 | Emergency (ER) | payer OTHER ==
[2021-10-03 01:23] VITALS: BP 138/75; PULSE 98; TEMP 98.6; BMI 22.0
== END 2021-10-03 07:01 | disposition home or self-care (01) ==
LOC: FER 00:59
PROC: 0H96XZZ Drainage of Back Skin, External Approach (ICD-10-PCS; principal; 2021-10-03)
DX: L72.3 Sebaceous cyst (principal)
CPT/HCPCS: 87070; 87205; 99283-25

== ENCOUNTER 2021-10-05 16:20 | Emergency (ER) | payer OTHER ==
[2021-10-05 16:38] VITALS: BP 150/76; PULSE 88; TEMP 99.4; BMI 18.1
== END 2021-10-05 16:51 | disposition home or self-care (01) ==
LOC: FER 16:20
DX: L02.212 Cutaneous abscess of back [any part, except buttock and flank] (principal)
CPT/HCPCS: 99283-25

== ENCOUNTER 2021-11-30 17:10 | Emergency (ER) | payer OTHER ==
[2021-11-30 17:23] VITALS: BP 130/73; PULSE 86; TEMP 98.6; BMI 20.6
[2021-11-30] MEDS ORDERED: ACETAMINOPHEN 325 MG TABLET (FP) PO ONE (17:43)
[2021-11-30] MEDS ORDERED: LIDOCAINE 5% TOPICAL PATCH TP ONE (17:43)
[2021-11-30] MEDS ORDERED: ACETAMINOPHEN 325 MG TABLET (FP) ONE (17:48)
[2021-11-30] MEDS ORDERED: LIDOCAINE 5% TOPICAL PATCH ONE (17:49)
[2021-11-30 18:52] LABS: INR 1.15 (0.83-1.09); PROTHROMBIN TIME (PATIENT) 13.3 SEC (9.7-13.0)
[2021-11-30 18:54] LABS: ACTIVATED PTT 33.1 SECONDS (25.2-36.5)
[2021-11-30 18:59] LABS: ALBUMIN 3.7 g/dl (3.4-5.0); BILIRUBIN,TOTAL 0.4 mg/dl (0.2-1); CALCIUM 9.2 mg/dl (8.5-10); CREATININE 0.8 mg/dl (0.55-1.3); TOT PROT 6.6 g/dl (6.4-8.2)
[2021-11-30 20:01] LABS: BASO % 1.4 % (0-2.0); EOS % 1.2 % (0-4.5); HEMATOCRIT 41.4 % (35.4-49); HEMOGLOBIN 13.8 GM/dL (11.7-16.9); LYMPH % 20.4 % (8-40); MCH 30.1 pg (25.7-33.7); MCHC 33.4 g/dl (32.0-35.9); MEAN CELL VOLUME 90.2 fl (80-96); MEAN PLT VOLUME 9.8 fl (7.5-11.1); MONO % 11.7 % (3.8-10.2); NEUT % 65.3 % (42.8-82.8); PLATELET COUNT 275 10^3/uL (134-434); RBC 4.59 M/mm3 (4.00-5.60); RDW 13.9 % (11.9-15.9); WHITE BLOOD COUNT 7.3 K/mm3 (4.0-10.0)
[2021-11-30] MEDS ORDERED: LIDOCAINE PATCH REMOVAL MC SCH (22:00)
== END 2021-12-01 01:30 | disposition home or self-care (01) ==
LOC: SUPCPDRO 17:10 → FER 17:10
DX: R07.81 Pleurodynia (principal)
CPT/HCPCS: 36415; 71101-TC-RT-FY; 71275-TC; 80053; 84484; 85025; 85379; 85610; 85730; 93005; 93970-TC; 99285-25; Q9967

== ENCOUNTER 2022-01-28 20:25 | Emergency (ER) | payer OTHER ==
[2022-01-28 20:38] VITALS: BP 153/87; PULSE 93; TEMP 98.9; BMI 22.0
[2022-01-28] MEDS ORDERED: ACETAMINOPHEN 500 MG TABLET (FP) PO ONE (21:54)
[2022-01-28] MEDS ORDERED: ACETAMINOPHEN 500 MG TABLET (FP) ONE (22:19)
== END 2022-01-29 01:09 | disposition home or self-care (01) ==
LOC: JER 20:25
DX: S86.911A Strain of unspecified muscle(s) and tendon(s) at lower leg level, right leg, initial encounter (principal); M48.10 Ankylosing hyperostosis [Forestier], site unspecified; V49.40XA Driver injured in collision with unspecified motor vehicles in traffic accident, initial encounter
CPT/HCPCS: 70450-TC; 72125-TC; 73562-TC-RT-FY; 99284-25